=== PATIENT | female | born 1955 | race Caucasian/White ===

== ENCOUNTER 2017-03-23 12:49 | Day surgery (SDC) | payer OTHER ==
[~2017-03-23 12:49] MED LIST: CITALOPRAM HBR10 M1 PO; DUETACT; EFFEXOR75 MG; HUMALOG100 UNIT/2 SC; HYDROXYZINE HCL25 MG PO; JANUVIA100 MG; LACTULOSE20 GM/30 M PO; LANTUS100 U/ML SC; LANTUS100 UNITS/ SC; LASIX40 M1 PO; METOPROLOL TART25 M1 PO; MICARDIS80 MG PO; MOBIC15 M1 PO; OMEPRAZOLE20 M3 PO; POTASSIUM20 MEQ/13 PO; PROZAC40 MG PO; SPIRONOLACTONE50 M1 PO; TYLENOL500 MG; ULTRAM50 M1 PO; XIFAXAN550 M1 PO
[2017-03-23 13:27] LABS: BASO % 1.4 % (0-2); BASO ABSOLUTE COUNT 0.1 tho/cmm (0.0-0.2); EOS % 2.4 % (0-7); EOSINOPHIL ABSOLUTE COUNT 0.1 tho/cmm (0.0-0.7); HCT-HEMATOCRIT 32.6 % (34.0-49.0); HGB-HEMOGLOBIN 11.3 gm/dl (12.0-15.5); IMMATURE GRANULOCYTES ABSOLUTE 0.01 tho/cmm (0-0.03); IMMATURE GRANULOCYTES PERCENT 0.2 % (0-0.3); MCH (MEAN CORPUSCULAR HGB) 30.2 pg (28.0-32.0); MCHC MEAN CORPUSCULAR HGB CONC 34.7 % (32.0-36.0); MCV (MEAN CELL VOLUME) 87.2 fl (82.0-96.0); MEAN PLATELET VOLUME 10.3 cmc (9.4-12.4); MONO % 9.4 % (0-12); MONOCYTE ABSOLUTE COUNT 0.5 tho/cmm (0.0-1.2); NEUTROPHIL ABSOLUTE COUNT 3.4 tho/cmm (1.6-8.0); NEUTROPHIL-AUTOMATED 3.4 tho/cmm (1.6-8.0); NEUTROPHILS % 67.6 % (40-80); PLATELET COUNT 85 tho/cmm (150-450); RED BLOOD COUNT 3.74 mil/cmm (4.00-5.20); RED CELL DISTRIBUTION WIDTH 13.9 % (12.4-16.4)
[2017-03-23 13:41] LABS: ANION GAP 14 mmol/L (0-20); BLOOD UREA NITROGEN 21 mg/dl (6-24); CALCIUM 8.5 mg/dl (8.5-10.5); CARBON DIOXIDE-VENOUS 24 mmol/L (22-32); CHLORIDE 112 mmol/l (96-110); CREATININE 1.14 mg/dl (0.50-1.10); GLUCOSE 102 mg/dL (70-110); POTASSIUM 3.3 mmol/L (3.7-5.1); SODIUM 147 mmol/L (135-145); eGFR VALUE FOR BLACK 61 mL/Min
== END 2017-03-23 15:12 ==
LOC: ENDOS 12:49 → SHSC 12:52 → ENDOS 14:10
PROVIDERS: Anesthesiology
PROC: 0DJ08ZZ Inspection of Upper Intestinal Tract, Via Natural or Artificial Opening Endoscopic (ICD-10-PCS; principal; 2017-03-23)
DX: K22.8 Other specified diseases of esophagus (principal); K31.9 Disease of stomach and duodenum, unspecified; K74.60 Unspecified cirrhosis of liver; I10 Essential (primary) hypertension; R20.2 Paresthesia of skin; E11.9 Type 2 diabetes mellitus without complications; K21.9 Gastro-esophageal reflux disease without esophagitis; R16.1 Splenomegaly, not elsewhere classified; F17.290 Nicotine dependence, other tobacco product, uncomplicated; J44.9 Chronic obstructive pulmonary disease, unspecified; Z79.4 Long term (current) use of insulin; Z79.899 Other long term (current) drug therapy; Z88.1 Allergy status to other antibiotic agents; Z88.5 Allergy status to narcotic agent; Z90.49 Acquired absence of other specified parts of digestive tract; Z90.710 Acquired absence of both cervix and uterus; Z98.890 Other specified postprocedural states